=== PATIENT | female | born 1950 | race Caucasian/White ===

== ENCOUNTER 2018-05-25 06:25 | Day surgery (SDC) | payer MEDICARE, BC ==
[2018-05-22 08:45] VITALS: BMI 26.6
[2018-05-25] MEDS ORDERED: Lidocaine PF 2% (5 ml) Inj (For Cardiac Arrhy) ONE ×2 (06:50→06:52)
[2018-05-25] MEDS ORDERED: Phenylephrine 10 mg/ml Inj ONE (06:50)
[2018-05-25] MEDS ORDERED: Nitroglycerin 50mg in D5W 0 MG/0 ML BOTTLE IV ONE (06:51)
[2018-05-25] MEDS ORDERED: Iohexol 350mgl/ml 50 ML ONE (06:51)
[2018-05-25] MEDS ORDERED: Iodixanol 320 MG/ML 200 ML BOTTLE IV ONE (06:51)
[2018-05-25] MEDS ORDERED: Iodixanol 320 MG/ML 100 ML BOTTLE IV ONE (06:51)
[2018-05-25 07:19] LABS: BASO # 0.02 K/mm3 (0.0-2.0); BASO % 0.4 % (0.0-3.0); EOS # 0.2 (0.0-0.7); EOS % 4.5 % (1.5-5.0); GRAN # 3.49 (1.4-6.5); GRAN % 65.3 % (50.0-68.0); HEMOGLOBIN 13.2 g/dL (12.0-16.0); LYMPH # 1.1 (1.2-3.4); LYMPH % 20.8 % (22.0-35.0); MEAN CELL VOLUME 86.4 fl (80.0-105.0); MEAN CORPUSCULAR HEMOGLOBIN 28.1 pg (25.0-35.0); MEAN CORPUSCULAR HGB CONC 32.5 g/dl (31.0-37.0); MEAN PLATELET VOLUME 9.8 fl (7.0-11.0); MONO # 0.5 (0.1-0.6); RBC 4.7 10^6/uL (3.5-6.1); RED CELL DISTRIBUTION WIDTH 14.8 % (11.5-14.5); WHITE BLOOD COUNT 5.3 10^3/ul (4.5-11.0)
[2018-05-25 07:29] LABS: BLOOD UREA NITROGEN 15 mg/dL (7-21); GFR NON-AFRICAN AMERICAN > 60; HDL CHOLESTEROL 45 mg/dL (29-60)
[2018-05-25 07:32] LABS: INR 0.97; PARTIAL THROMBOPLASTIN TIME 27.2 Seconds (25.1-36.5); PROTHROMBIN TIME 11.2 SECONDS (9.4-12.5)
[2018-05-25 07:39] LABS: LDL CHOLESTEROL 112 mg/dL (0-129)
[2018-05-25] MEDS ORDERED: Midazolam 2 MG/2 ML VIAL ONE ×2 (07:40→07:46)
[2018-05-25 08:43] VITALS: RESP 20; TEMP 98.1
[2018-05-25] MEDS ORDERED: Sodium Chloride 0.9% 1,000 ML IV SCH (08:45)
--- NOTE | 2018-05-25 09:00 | CARDCATH ---
PROCEDURE DATE: 05/25/2018 CARDIAC CATHETERIZATION HISTORY: The patient is a 67-year-old woman, who presents with documented frequent ventricular arrhythmias, palpitations, intermittent chest pain. A stress test was abnormal. Because of this, a cardiac catheterization was recommended. PROCEDURE: Left heart catheterization with coronary arteriography and left ventriculogram. The right femoral artery was cannulated with a 6-[place] sheath. There were no complications. I performed moderate sedation, which included the presence of an independent trained observer that assisted in monitoring the patient's level of consciousness and physiologic status. After administration of Versed and fentanyl, my intra service time was 15 minutes. The findings on catheterization revealed a left ventricle that contracted normally. Estimated ejection fraction is 60%. Her coronary anatomy revealed a right dominant circulation. The RCA revealed intimal irregularities without critical lesions. The left main artery was unremarkable. The LAD and diagonal vessels were free of significant disease. The circumflex artery and obtuse marginal branches revealed intimal irregularities without critical lesions. Angio-Seal was used to close the femoral artery site. The patient tolerated the procedure well. In summary, the procedure revealed mild intimal irregularities in the coronary tree with no critical lesions. LV function is normal. Given these findings, the PVCs have no prognostic significance given her unremarkable coronary arteries and normal LV function. Her treatment should be directed at a cardiac risk reduction program. I have discussed this with the patient and family in detail. Adrian Griggs MD
--- NOTE | 2018-05-25 09:44 | CARD ---
APPROVED REPORT Date of service: 05/25/2018 EKG Measurement Heart [id number] AL 140P-21 [id number] <Conclusion> Sinus rhythm with frequent premature ventricular complexes Low voltage QRS Lateral infarct, age undetermined Abnormal ECG
[2018-05-25 12:26] VITALS: O2SAT 95
[2018-05-25 14:04] VITALS: BP 140/77; PULSE 93
== END 2018-05-25 14:45 | disposition home or self-care (01) ==
LOC: CATH 06:25
PROVIDERS: ATTEND Internal Medicine Cardiovascular Disease
DX: R07.89 Other chest pain (principal); R00.2 Palpitations
CPT/HCPCS: 36415; 80048; 80061; 85025; 85610; 85730; 86850; 86900; 93005; 93458; 99152; C1760; C1769; C2629; J1644; J2250; J3010; J7030; Q9966